=== PATIENT | male | born 1975 | race Caucasian/White ===

== ENCOUNTER 2023-09-08 12:23 | Day surgery (SDC) | payer OTHER, SELFPAY ==
--- NOTE | 2023-09-07 13:25 | HO.ANESPROP2 ---
HPI - Anesthesia Eval Consult details Narrative: 48yo M for Upper Endoscopy and Colonoscopy PMFSH Past Medical History Medical History Diverticulosis Sleep apnea GERD (gastroesophageal reflux disease) Elevated cholesterol Migraine ADHD HTN (hypertension) Diabetes Surgical History Surgical History Hx of umbilical hernia repair History of esophagogastroduodenoscopy (EGD) H/O colonoscopy Social History Social History Patient Tobacco Use Status: Never used Tobacco Use of substances other than those prescribed or required for medical reasons: No Are you DNR?: No Advance Directives: No Advance Directives Information Provided: Yes Meds Allergies Allergy/AdvReac Type Severity Reaction Status Date / Time bupropion Allergy Unknown Verified 09/08/23 12:48 Home Medications Medication Instructions Recorded Confirmed Last Taken Type lisinopril 30 mg tablet 30 mg PO DAILY 09/07/23 09/08/23 09/08/23 History magnesium tab PO DAILY 09/07/23 Unknown History omeprazole magnesium 20 mg 20 mg PO DAILY 09/07/23 09/08/23 09/08/23 History capsule,delayed release propranolol 80 mg capsule,extended 80 mg PO DAILY 09/07/23 09/07/23 Unknown History release 24 hr (Inderal XL) sumatriptan 5 mg/actuation nasal 5 mg intranasal Q2-4H PRN Migraine 09/07/23 09/07/23 Unknown History spray Headache Assessment and Plan Assessment Anesthesia Assessment: Chart Reviewed
[2023-09-08 12:37] VITALS: BMI 42.8
--- NOTE | 2023-09-08 12:42 | HO.ANESPROP2 ---
[facility] Past Medical History Medical History Diverticulosis Sleep apnea GERD (gastroesophageal reflux disease) Elevated cholesterol Migraine ADHD HTN (hypertension) Diabetes Functional capacity: independent ambulation Family History Family history of problems with anesthesia: No Surgical History Surgical History Hx of umbilical hernia repair History of esophagogastroduodenoscopy (EGD) H/O colonoscopy History of Problems with Anesthesia: Yes Social History Social History Advance Directives: No Advance Directives Information Provided: Yes Meds Allergies Allergy/AdvReac Type Severity Reaction Status Date / Time bupropion Allergy Unknown Verified 09/08/23 12:48 Active Medications: Current Medications Lactated Ringer's (Lr) 1,000 mls @ 100 mls/hr IVCONT .Q10H [facility] Home Medications Medication Instructions Recorded Confirmed Last Taken Type lisinopril 30 mg tablet 30 mg PO DAILY 09/07/23 09/08/23 09/08/23 History magnesium tab PO DAILY 09/07/23 Unknown History omeprazole magnesium 20 mg 20 mg PO DAILY 09/07/23 09/08/23 09/08/23 History capsule,delayed release propranolol 80 mg capsule,extended 80 mg PO DAILY 09/07/23 09/07/23 Unknown History release 24 hr (Inderal XL) sumatriptan 5 mg/actuation nasal 5 mg intranasal Q2-4H PRN Migraine 09/07/23 09/07/23 Unknown History spray Headache Exam Airway Mallampati Class: III TM Dist: >3cm Neck ROM: Full Heart: RRR Lungs: CTA Assessment and Plan Assessment Anesthesia Assessment: Anesthesia Plan Discussed Final Anesthetic Review Family History of Problems with Anesthesia: No History of Problems with Anesthesia: Yes NPO: Yes ASA Class: III Final Preanesthetic Review: Meds/Allgs Chart Reviewed, Consent Obtained/Reviewed and Anes Risks/Benef Reviewed Patient Risk: Intermediate Procedure Risk: Low Anesthetic Plan Anesthetic Plan: MAC: Disposition: Standard PACU
[2023-09-08 13:19] LABS: Glucose, Whole Blood 88 mg/dL (60-115)
--- NOTE | 2023-09-08 13:21 | MHC.SHP ---
Pre-Procedural Eval Section A Date of Service: 09/08/23 The patient is an INPATIENT: No Changes since office visit: No Cold of Flu in the past 2 weeks, No New Medical Problems, No Changes in Medication and No Patient answered all questions The History & Physical has been completed within 30 days and I have reviewed it.: Yes Section B Chief Complaint: gerd,screening Allergies: Allergies Allergy/AdvReac Type Severity Reaction Status Date / Time bupropion Allergy Unknown Verified 09/08/23 12:48 Plan I have reviewed the history and physical and performed a pertinent physical examination on my patient. No changes have occurred unless specified. Time Spent With Patient Time: Total time managing care of this patient today ____ minutes.
[2023-09-08 13:29] VITALS: BP 151/77; PULSE 82; RESP 16; TEMP 36.2; O2SAT 97
[2023-09-08] MEDS: Lactated Ringers 1,000 ML 100 ML IVCONT (13:30)
[2023-09-08 14:14] VITALS: BP 103/61; PULSE 86; RESP 16; TEMP 36.1; O2SAT 95
[2023-09-08 14:29] VITALS: BP 91/58; PULSE 78; RESP 16; O2SAT 95
[2023-09-08 15:05] VITALS: BP 101/62; PULSE 73; RESP 17; TEMP 36.1; O2SAT 97
--- NOTE | 2023-09-08 19:56 | OP_ITS ---
DATE OF SERVICE: 09/08/2023 SURGEON: Raimundo Romero MD INDICATIONS: 1. Colon cancer screening. 2. Gastroesophageal reflux disease. PREOPERATIVE DIAGNOSIS: POSTOPERATIVE DIAGNOSIS: PROCEDURE PERFORMED: Colonoscopy to the terminal ileum, upper endoscopy with biopsy. ESTIMATED BLOOD LOSS: COMPLICATIONS: ANESTHESIA: Monitored anesthesia care. ASSISTANTS: SPECIMENS: DESCRIPTION OF PROCEDURE: A history and physical was performed. The risks and benefits of the procedure were explained to the patient and informed consent was obtained. The patient was placed in the left lateral decubitus position. The digital rectal exam was performed and was found to be normal. The Olympus pediatric video colonoscope was introduced into the rectum and advanced to the cecum. The cecum was identified by transillumination, palpation, and identification of ileocecal valve. Examination was performed. The scope was removed. He tolerated the procedure well and was repositioned for endoscopy. The Olympus video gastroscope was introduced into the esophagus, stomach, and duodenum. Examination was performed. The scope was removed. He tolerated both procedures well and was returned to the recovery area in stable condition. FINDINGS: Colonoscopy: The terminal ileum was normal. The visualized colonic mucosa was normal. There was moderate sigmoid diverticulosis with scattered diverticula throughout the remainder of the colon. No skin tag or lesion was identified on retroflexed view. There were small internal hemorrhoids. Upper endoscopy: 1. Esophagus: The esophagus showed an irregular EG junction with a sliding hiatal hernia. Biopsies were obtained from the EG junction. 2. Stomach: The stomach showed no evidence of masses, ulcers, or polyps. Antral biopsies were obtained to rule out H pylori. 3. Duodenum: The bulb and 2nd portion were normal. IMPRESSION: 1. Normal colonoscopy. 2. Gastroesophageal reflux disease. RECOMMENDATION: 1. Follow up the biopsy results. 2. Repeat colonoscopy is recommended in 10 years for average risk individuals. MD JARON Herron/KANWAL / [id number]
== END 2023-09-08 15:40 | disposition home or self-care (01) ==
PROVIDERS: PCP Physician Assistant Medical; Visit Provider Internal Medicine Gastroenterology
PROC: (CPT 43239; principal; 2023-09-08 13:40)
DX: K21.00 Gastro-esophageal reflux disease with esophagitis, without bleeding (principal); K22.9 Disease of esophagus, unspecified; Z12.11 Encounter for screening for malignant neoplasm of colon; K57.30 Diverticulosis of large intestine without perforation or abscess without bleeding; K64.8 Other hemorrhoids; E11.9 Type 2 diabetes mellitus without complications; I10 Essential (primary) hypertension; E78.5 Hyperlipidemia, unspecified; F90.9 Attention-deficit hyperactivity disorder, unspecified type; G47.33 Obstructive sleep apnea (adult) (pediatric); Z99.89 Dependence on other enabling machines and devices
CPT/HCPCS: 43239; 45378; 82947; 88305; 88342; J2704